=== PATIENT | female | born 1970 | race Caucasian/White ===

== ENCOUNTER 2019-12-04 12:34 | Inpatient (IN) | payer OTHER ==
[2019-12-04 13:09] LABS: #Basophils 0.1 thou/uL (0.0-0.2); #Lymphocytes 2.7 thou/uL (1.20-3.40); #Monocytes 0.5 thou/uL (0.11-0.59); #Neutrophils 6.7 thou/uL (1.40-6.50); %Basophils 1.1 % (0.0-1.0); %Eosinophils 0.2 % (0.0-10.0); %Lymphocytes 27.1 % (21.0-51.0); %Monocytes 5.4 % (0.0-10.0); %Neutrophils 66.2 % (42.0-75.0); Hemoglobin 16.5 g/dL (12.0-16.0); Mean Corpuscular HGB CONC 33.1 g/dL (32.0-36.0); Mean Corpuscular Hemoglobin 30.3 pg (27.0-31.0); Mean Corpuscular Volume 91.6 fL (78.0-98.0); Mean Platelet Volume 7.7 fL (7.4-10.4); Platelet Count 256 thou/uL (130-400); RBC Distribution Width 11.9 % (11.5-14.5); Red Blood Cell (RBC) Count 5.46 mill/uL (4.20-5.40)
--- NOTE | 2019-12-04 13:20 | RAD ---
EXAM: Chest Two Views 12/04/2019 1:17 PM HISTORY: Dyspnea with fevers and chills COMPARISON: None. FINDINGS: Heart: Normal in size and contour. Pulmonary vessels: Normal. Costophrenic angles: Clear. Lungs: No acute airspace consolidation. Pneumothorax: None. Osseous structures:Intact. Additional findings: None. IMPRESSION: No significant acute intrathoracic disease.
[2019-12-04 13:30] LABS: ALT (SGPT) 48 U/L (8-55); AST (SGOT) 24 U/L (5-34); Albumin 4.9 g/dL (3.5-5.0); Alkaline Phosphatase 93 U/L (40-110); Anion Gap 17 mmol/L (10-20); BUN (Urea Nitrogen) 12 mg/dL (9.8-20.1); Bilirubin, Total 0.4 mg/dL (0.2-1.2); Calc. Creatinine Clearance 0 mL/min (70-130); Calcium 10.1 mg/dL (7.8-10.44); Carbon Dioxide 27 mmol/L (22-29); Chloride 104 mmol/L (98-107); Estimated GFR-MDRD 64; Globulin 3.1 g/dL (2.4-3.5); Glucose 128 mg/dL (70-105); Potassium 4.2 mmol/L (3.5-5.1); Sodium 144 mmol/L (136-145)
[2019-12-04] MEDS ORDERED: Iopamidol-370 76% 500 ML 1 ML ONE (14:36)
[2019-12-04] MEDS ORDERED: Albuterol Sulfate 2.5 mg/3 ml Neb ONE (14:56)
[2019-12-04] MEDS ORDERED: Magnesium 2 GM/50 ML BAG (IN WATER) ONE (15:02)
[2019-12-04] MEDS ORDERED: Dexamethasone 10 MG/ML VIAL ONE (15:02)
[2019-12-04] MEDS ORDERED: Lorazepam 2 MG/ML VIAL ONE (15:02)
[2019-12-04 15:28] LABS: Actual Bicarbonate (HCO3a) 19.6 mEq/L (22-28); Analyzer IN Cardio ER; Base Excess (BEa) -1.4 mEq/L (-2.0 to +3.0); CO2 Tension 25.4 mmHg (35.0-45.0); Calcium, Ionized 1.17 mmol/L (1.12-1.30); Carboxyhemoglobin (COHb) 0.4 gm% (0.0-3.0); Hemoglobin (Hb) 16.7 g/dL (12.0-16.0); O2 Tension (PaO2) 73.6 mmHg (80.0-100.0); Potassium - ABG Lab 3.84 mmol/L (3.70-5.30); pH, Arterial 7.51 (7.35-7.45)
[2019-12-04 15:29] LABS: Puncture Site LRA
[2019-12-04 15:48] LABS: CK (CPK) 53 U/L (29-168); Lipase 8 U/L (8-78)
--- NOTE | 2019-12-04 16:20 | PDOC.FPRHP ---
- History of Present Illness Chief Complaint: URI with fever/chills and wheezing History of Present Illness: 49 yo pleasant female presents for evaluation of URI with fevers, cough, and wheezing. Patient was sent from her PCP, Dr. Elizondo for further evaluation. Patient reports that on 11/25/19 symptoms began and she thought she had the flu. She notes she had fevers, chills, hallucinations, vomiting, and diarrhea. 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 She notes that now it has been 8 days of not feeling well and she is just getting run down. She reports pain in her chest with coughing and she continues to cough up thick dark colored sputum. She notes that she has had multiple fevers with the last fever occurring last night to 100.7. She also notes her Tmax during this time as up to 102.3. Again, patient believes this is the flu, but she hasn't had it in so long that she is unaware how much of a toll it takes on a person. 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 No other complaints. ED Course: Duonebs x3 Albuterol Nebulizer Vancomycin Levaquin Decadron Magnesium Sulfate 3L NS bolus Ativan - Allergies/Adverse Reactions Allergies Allergy/AdvReac Type Severity Reaction Status Date / Time No Known Drug Allergies Allergy Verified 12/04/19 16:25 - History PMHx: None PSHx: None FHx: Non-contributory and not assessed Social: Social Alcohol drinker, No tobacco or drug use. 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 Medication reconciliation: HCTZ PRN for lower extremity edema Modafinil PRN for shift work Several OTC herb/supplements Recently during episode: Symbicort BID Rocephin 2 mg Sudaphed Methylprednisolone Robitussin with codeine - Review of Systems General: reports: fever/chills, fatigue. denies: weight/appetite/sleep changes Eyes: denies: eye pain, vision changes ENT: denies: nasal congestion, rhinorrhea Respiratory: reports: cough, congestion, shortness of breath Cardiovascular: denies: chest pain, palpitation, edema Gastrointestinal: reports: nausea, diarrhea. denies: vomiting, abdominal pain Genitourinary: denies: incontinence, dysuria Skin: denies: rashes, lesions Musculoskeletal: denies: pain, tenderness, stiffness, swelling Neurological: denies: numbness, syncope, seizure Psychological: denies: anxiety, depression - Vital signs BP: 182/107 HR: 96 RR: 22 Tmax: 98.3 Pox: 99% on RoomAir Wt: 113 kg - Physical Exam Constitutional: NAD, awake, alert and oriented HEENT: grossly normal vision, grossly normal hearing, normal nasal mucosa Neck: supple, trachea midline Heart: RRR, normal S1/S2, no murmurs/rubs/gallops Lungs: CTAB, no respiratory distress, good air movement, no wheezing -Lungs: Upper Airway sounds audible. No wheezing present over lung herrera. Abdomen: soft, non-tender, bowel sounds present, no masses/distention Musculoskeletal: normal structure, normal tone, ROM grossly normal Neurological: no focal deficit, CN II-XII intact, normal sensation Skin: no rash/lesions, good turgor, capillary refill <2 seconds Heme/Lymphatic: no unusual bruising or bleeding, no purpura Psychiatric: normal mood and affect, good judgment and insight, intact recent and remote memory FMR H&P: Results - Labs Result Diagrams: 12/04/19 12:57 12/04/19 12:57 Lab results: WBC 10.0 thou/uL (4.8-10.8) 12/04/19 12:57 Hgb 16.5 g/dL (12.0-16.0) H 12/04/19 12:57 Hct 50.1 % (36.0-47.0) H 12/04/19 12:57 MCV 91.6 fL (78.0-98.0) 12/04/19 12:57 Plt Count 256 thou/uL (130-400) 12/04/19 12:57 Neutrophils % 66.2 % (42.0-75.0) 12/04/19 12:57 ABG pH 7.51 (7.35-7.45) H 12/04/19 15:20 ABG pCO2 25.4 mmHg (35.0-45.0) L* 12/04/19 15:20 ABG pO2 73.6 mmHg (80.0-100.0) L 12/04/19 15:20 Sodium 144 mmol/L (136-145) 12/04/19 12:57 Potassium 4.2 mmol/L (3.5-5.1) 12/04/19 12:57 Chloride 104 mmol/L (98-107) 12/04/19 12:57 Carbon Dioxide 27 mmol/L (22-29) 12/04/19 12:57 BUN 12 mg/dL (9.8-20.1) 12/04/19 12:57 Creatinine 0.93 mg/dL (0.6-1.1) 12/04/19 12:57 Glucose 128 mg/dL (70-105) H 12/04/19 12:57 Lactic Acid 3.6 mmol/L (0.5-2.2) H 12/04/19 15:19 Calcium 10.1 mg/dL (7.8-10.44) 12/04/19 12:57 Total Bilirubin 0.4 mg/dL (0.2-1.2) 12/04/19 12:57 AST 24 U/L (5-34) 12/04/19 12:57 ALT 48 U/L (8-55) 12/04/19 12:57 Alkaline Phosphatase 93 U/L (40-110) 12/04/19 12:57 Creatine Kinase 53 U/L (29-168) 12/04/19 15:19 B-Natriuretic Peptide 49.1 pg/mL (0-100) 12/04/19 15:19 Serum Total Protein 8.0 g/dL (6.0-8.3) 12/04/19 12:57 Albumin 4.9 g/dL (3.5-5.0) 12/04/19 12:57 Lipase 8 U/L (8-78) 12/04/19 15:19 - EKG Interpretation EK lead EKG shows normal sinus rhythm, Rate (beats per minute): 88, ST, ST and T wave abnormality, consider inferolateral ischemia, T waves, ST and T wave abnormality, consider inferolateral ischemia, cannot rule out anterior infarct, age undetermined. - Radiology Interpretation Chest x-ray Status: image reviewed by me (NAD) FMR H&P: A/P - Problem List (1) Viral bronchitis Current Visit: Yes Status: Acute Code(s): J20.8 - ACUTE BRONCHITIS DUE TO OTHER SPECIFIED ORGANISMS (2) Lactic acid acidosis Current Visit: Yes Status: Acute Code(s): E87.2 - ACIDOSIS (3) Respiratory alkalosis Current Visit: Yes Status: Acute Code(s): E87.3 - ALKALOSIS (4) Elevated BP without diagnosis of hypertension Current Visit: Yes Status: Acute Code(s): R03.0 - ELEVATED BLOOD-PRESSURE READING, W/O DIAGNOSIS OF HTN - Plan Respiratory Alkalosis - Likely secondary to #2 - O2 supplementation and pulmonary hygiene recommended Bronchitis - Will continue steroids - Nebulizers as needed - Will order procalcitonin - Will likely discontinue antibiotics with CXR imaging and overall non toxic appearance Lactic Acidosis - 3.6 on admission - IVF in ED and will recheck in 2 hours as reflex Elevated BP - No home medications per patient - PRN available - Anticipate outpatient monitoring and treatment PCP: Dr. Elizondo CODE STATUS: FULL CODE Disposition: Stable, will admit for medical observation and likely discharge tomorrow. Addendum - Attending - Attending Attestation Date/Time: 12/04/19 2200 I personally evaluated the patient and discussed the management with Dr. Crawford I agree with the History, Examination, Assessment and Plan documented above with any addition or exceptions noted below. 49 yo WF PMH recently suspected influenza that started 8 days ago. Presented to ER after PCP thought she was developing PNA. had received IM rocephin in clinic without improvement. C/O SOB, cough, chest pain with coughing. Denies hemoptysis. Had had fever up to 102.7F. At time of exam stated "the ton of bricks had been lifted off my chest but the baby elephant is still there." States she has similar sx whenever she has a respiratory illness. Mild respiratory distress on exam with diffuse wheezing. Non-toxic appearing and speaks in full sentences. Labs unremarkable except for elevated lactate that trended up on repeat (minimal fluid resuscitation at that point), hypocarbemia, and mild hypoxemia on ABG. Imaging negative. EKG unremarkable. Admit for acute hypoxemic respiratory distress 2/2 presumed post viral reactive airway disease. Continue IV steroids and q3hr duoneb with q1 hr albuterol PRN. Will hold abx for now as no signs of infiltrate on CXR or CT chest and received 1 dose of levaquin in ER. Procal pending. Tele, inpatient, >2 midnights.
--- NOTE | 2019-12-04 17:14 | CT ---
CT OF THE SOFT TISSUES OF THE NECK WITH IV CONTRAST INDICATION: History of fever, dyspnea and congestion COMPARISON: None FINDINGS: Aerodigestive tract: Clear. Parotids/Submandibular/Thyroid glands: Normal. Lymph nodes: No pathologically enlarged lymph nodes. Lung Apices: Clear Bones: No acute osseous abnormality. There is scattered degenerative and osteoarthritic change prese nt. Incidentals: Visualized intracranial contents appear within normal limits. Visualized aspects of the paranasal sinuses appear within normal limits. Mastoid air cells are clear . IMPRESSION: Normal examination.
--- NOTE | 2019-12-04 17:55 | CT ---
Exam: CT angiogram of the chest HISTORY: Tachycardia. Cough. Fever. Dyspnea. COMPARISON: None TECHNIQUE: CT angiogram of the chest is performed in the axial plane. Three-dimensional reformatted i mages are submitted for interpretation FINDINGS: Mediastinum: No mass, lymphadenopathy or hematoma. HEART: Normal size. No significant pericardial fluid. Aorta: Appropriate enhancement. No aneurysm or dissection. Upper solid abdominal viscera: 0.8 cm hypodensity in the right hepatic lobe. Otherwise, visualized so lid organs are unremarkable. Trachea and central bronchi: Patent Pleural spaces: No effusion Lung parenchyma: Minimal dependent atelectatic changes. No masses, nodules. No consolidation. Pneumothorax: None Osseous structures: No lytic or blastic lesions Pulmonary arteries:Markedly suboptimal evaluation of the pulmonary arterial system due to the poor ti divine of contrast bolus. The main pulmonary trunk and central pulmonary arteries are grossly unremarkable. No obvious filling defects though evaluation is limited. Examination is essentially non diagnostic in terms of evaluation for the lobar, segmental, and subsegmental arteries. IMPRESSION: Markedly suboptimal evaluation of the pulmonary arterial system. Grossly no obvious central PE. Transcribed Date/Time: 12/04/2019 6:33 PM
[2019-12-04 18:22] LABS: Bilirubin Negative (Negative); Blood, Urine Negative (Negative); Clarity Clear (Clear); Glucose, Urine (Dipstick) Normal (Negative); Leukocyte Negative Leu/uL (Negative); Nitrite Negative (Negative); Protein, Urine (Dipstick) Negative (Neg-Trace); Urobilinogen Normal mg/dL (Less than 2)
[2019-12-04 18:58] LABS: Lactic Acid 4.7 mmol/L (0.5-2.2)
[2019-12-04] MEDS ORDERED: Albuterol Sulfate 2.5 mg/0.5 ml Neb ONE ×4 (19:27)
[2019-12-04] MEDS ORDERED: Ondansetron PF 4 MG/2 ML Vial IVP PRN (21:29)
[2019-12-04] MEDS ORDERED: Sodium Chloride 0.9% 1,000 ML IV SCH ×2 (21:29→22:00)
[2019-12-04] MEDS ORDERED: Ondansetron ODT 4 MG TAB SL PRN (21:29)
[2019-12-04] MEDS ORDERED: hydrALAZINE 20 MG/ML VIAL SLOW IVP PRN (21:37)
[2019-12-04] MEDS ORDERED: Loperamide HCl 2 MG CAP PO PRN (21:37)
[2019-12-04] MEDS ORDERED: Acetaminophen 325 MG TAB PO PRN (21:37)
[2019-12-04] MEDS ORDERED: Ondansetron ODT 4 MG TAB PO PRN (21:37)
[2019-12-04] MEDS ORDERED: Benzonatate 100 MG CAP PO SCH (21:45)
[2019-12-04] MEDS: clonazePAM 0.5 MG TAB PO PRN (21:46)
[2019-12-04] MEDS: guaiFENesin/Codeine Phosphate 200 mg/20 mg 10 ml UD Cup PO PRN (21:46)
[2019-12-04 21:54] VITALS: BMI 42.8
[2019-12-04] MEDS ORDERED: Albuterol Sulfate 1.25 MG/3 ML NEB NEB PRN (22:38)
[2019-12-04] MEDS ORDERED: Albuterol Sulfate 1.25 MG/3 ML NEB NEB SCH (23:00)
[2019-12-05 00:41] LABS: Lactic Acid 7.3 mmol/L (0.5-2.2)
[2019-12-05] MEDS ORDERED: Sodium Chloride 0.9% 1,000 ML IV SCH (01:06)
--- NOTE | 2019-12-05 01:12 | PDOC.BPN ---
- Brief Progress Note LA trended up to 7.3 Check on patient at bedside Says her SOB is turning a corner and has improved Complains of rib pain from constant coughing, requests 1 time dose of tramadol Mild rales right upper lobe, mild exp stridor upper airway D-dimer neg, trop neg, CTA chest neg for PE but suboptimal, WBC 10.0, procal neg Patient has had 3L, will finish 4th bag, to put her at 30mg/kg fluid resuscitation No signs of volume overload at this point\ s/p vanc, levoquin, steroids, and lots of nebs Satting 98-99 on 3L, same as ED RR 26, speaking in complete sentences clinically stable from the time she was in the ED will re-check LA in 3 hours and if it continues to rise will re-check ABG Repeat CXR in the AM to see if a pneumonia is evident after fluid resuscitation
[2019-12-05] MEDS ORDERED: traMADol HCl 50 MG TAB PO SCH (01:15)
[2019-12-05] MEDS ORDERED: Dexamethasone 4 mg/ml Vial SLOW IVP SCH (03:00)
[2019-12-05 04:43] LABS: #Lymphocytes 0.8 thou/uL (1.20-3.40); #Monocytes 0.3 thou/uL (0.11-0.59); #Neutrophils 7.4 thou/uL (1.40-6.50); %Basophils 0.2 % (0.0-1.0); %Eosinophils 0.3 % (0.0-10.0); %Lymphocytes 9.8 % (21.0-51.0); %Monocytes 3.9 % (0.0-10.0); %Neutrophils 85.9 % (42.0-75.0); Hemoglobin 13.4 g/dL (12.0-16.0); Mean Corpuscular HGB CONC 33.6 g/dL (32.0-36.0); Mean Corpuscular Hemoglobin 30.4 pg (27.0-31.0); Mean Corpuscular Volume 90.4 fL (78.0-98.0); Mean Platelet Volume 7.7 fL (7.4-10.4); Platelet Count 217 thou/uL (130-400); RBC Distribution Width 11.9 % (11.5-14.5); White Blood Cell (WBC) Count 8.6 thou/uL (4.8-10.8)
[2019-12-05 04:56] LABS: Lactic Acid 3.2 mmol/L (0.5-2.2)
[2019-12-05] MEDS ORDERED: Albuterol Sulfate 1.25 MG/3 ML NEB NEB PRN (07:57)
--- NOTE | 2019-12-05 08:12 | RAD ---
XR Chest 1 View History: Shortness of breath. Lactic acidosis Comparison: CT angiogram of the chest prior day Findings: Mild lung hyperinflation. No pneumothorax. No effusion. No consolidation. No acute osseous abnormality. Impression: No acute intrathoracic abnormality.
--- NOTE | 2019-12-05 08:21 | PDOC.FM ---
- Subjective Subjective: Doing well this morning, no acute events overnight. Much improved. Still with cough, improved with cough syrup. No SOB. Tolerating PO well. Able to ambulate in room. Eager for discharge this afternoon. - Objective MAR Reviewed: Yes Vital Signs & Weight: Vital Signs (12 hours) Temp Pulse Resp BP Pulse Ox 12/05/19 07:48 97.6 F 78 20 164/98 H 97 12/05/19 04:00 98.3 F 85 23 H 120/63 99 12/05/19 00:12 91 20 12/04/19 22:00 99 20 129/66 98 12/04/19 21:45 99 12/04/19 21:44 105 H 22 H 95 12/04/19 21:30 98.4 F 108 H 20 167/115 H 99 Weight Weight 120.338 kg I&O: 12/04/19 12/05/19 12/06/19 06:59 06:59 06:59 Intake Total 2117 Output Total 950 Balance 1167 Result Diagrams: 12/05/19 04:25 12/04/19 12:57 Phys Exam - Physical Examination Constitutional: NAD (resting comfortably, good spirits) HEENT: moist MMs Neck: supple Respiratory: no wheezing, no rales, no rhonchi, clear to auscultation bilateral cough with deep inspiration, upper airway congestion Cardiovascular: RRR, no significant murmur, no rub Gastrointestinal: soft, non-tender, no distention, positive bowel sounds Musculoskeletal: no edema, pulses present Neurological: non-focal, moves all 4 limbs Psychiatric: normal affect, A&O x 3 Dx/Plan (1) Viral bronchitis Code(s): J20.8 - ACUTE BRONCHITIS DUE TO OTHER SPECIFIED ORGANISMS Status: Acute (2) Lactic acid acidosis Code(s): E87.2 - ACIDOSIS Status: Acute (3) Respiratory alkalosis Code(s): E87.3 - ALKALOSIS Status: Acute - Plan Plan: 49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 Procal Negative. Lung exam WNL this AM - s/p solumedrol, will d/c today - No wheeze on exam, no underlying lung disease, will space out nebs - s/p vanc and levaquin in ED, low suspicion for bacterial, no further abx warranted. - On 3L overnight but 100%, turned off O2 this AM, had patient moving in bed, talking and satting 97-100% on RA - CTA chest and D-dimer negative for PE however poor image study, very low suspicion for PE #Respiratory Alkalosis - Likely secondary to #2 - O2 supplementation and pulmonary hygiene recommended #Lactic Acidosis - 3.6 -> 4.7 -> 7.3 -> 3.2 - s/p fluid resuscitation, no s/s of sepsis. BCx NGTD #Elevated BP - No home medications per patient - PRN available. Anticipate outpatient monitoring and treatment PCP: Dr. Elizondo IVF: SL Diet: Regular VTE: SCDs CODE STATUS: FULL CODE Disposition: Stable. Improved this AM. Anticipate discharge this PM pending clinical course. Addendum - Attending - Attending Attestation Date/Time: 12/05/19 1042 I personally evaluated the patient and discussed the management with Dr. Dumont. I agree with the History, Examination, Assessment and Plan documented above with any addition or exceptions noted below. Patient here with what sounds like reactive airway disease 2/2 URI. She is feeling much better today, but continues to have severe cough and expiratory wheezes. Continue neb treatments, symptom control, steroids. If doing well today , possible d/c home. However, she may need another day or 2. Of note, patient has not had an O2 requirement as she has not been hypoxic. Supplemental O2 has been weaned successfully.
[2019-12-05] MEDS: Benzonatate 100 MG CAP PO SCH ×3 (08:51→20:41)
[2019-12-05] MEDS: guaiFENesin/Codeine Phosphate 200 mg/20 mg 10 ml UD Cup PO PRN (08:56)
[2019-12-05] MEDS ORDERED: methylPREDNISolone Sod Succ/PF 125 MG/2 ML VIAL IVP SCH (09:00)
[2019-12-05] MEDS ORDERED: predniSONE 20 MG TAB PO SCH (10:45)
[2019-12-05] MEDS ORDERED: Acetaminophen 500 MG TAB PO SCH (12:30)
[2019-12-05] MEDS ORDERED: Cyclobenzaprine 10 MG TAB PO SCH (15:30)
[2019-12-05] MEDS ORDERED: Cyclobenzaprine 10 MG TAB PO PRN (18:09)
[2019-12-05] MEDS: guaiFENesin ER 600 MG TAB PO SCH (20:41)
[2019-12-05] MEDS: clonazePAM 0.5 MG TAB PO PRN (20:42)
--- NOTE | 2019-12-06 06:34 | PDOC.FM ---
- Subjective Subjective: Pt is doing well today. She states she is ready to go. Would like a work note. She denies fever, chills, wheeze, diarrhea, constipation. Endorsed little sore throat with resolving cough. - Objective Vital Signs & Weight: Vital Signs (12 hours) Temp Pulse Resp BP Pulse Ox 12/06/19 04:00 97.6 F 69 20 137/87 96 12/05/19 20:00 98.0 F 101 H 18 136/67 96 12/05/19 19:11 92 16 98 Weight Weight 120.338 kg I&O: 12/04/19 12/05/19 12/06/19 06:59 06:59 06:59 Intake Total 2117 250 Output Total 950 900 Balance 1167 -650 Result Diagrams: 12/05/19 04:25 12/04/19 12:57 Phys Exam - Physical Examination Constitutional: NAD HEENT: PERRLA, moist MMs Respiratory: no wheezing, no rales, clear to auscultation bilateral Cardiovascular: RRR, no significant murmur Gastrointestinal: soft, non-tender, no distention Musculoskeletal: no edema, pulses present Psychiatric: normal affect, A&O x 3 Dx/Plan (1) Elevated BP without diagnosis of hypertension Code(s): R03.0 - ELEVATED BLOOD-PRESSURE READING, W/O DIAGNOSIS OF HTN Status : Acute (2) Lactic acid acidosis Code(s): E87.2 - ACIDOSIS Status: Acute (3) Respiratory alkalosis Code(s): E87.3 - ALKALOSIS Status: Acute (4) Viral bronchitis Code(s): J20.8 - ACUTE BRONCHITIS DUE TO OTHER SPECIFIED ORGANISMS Status: Acute - Plan Plan: 49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 Procal Negative. Lung exam WNL this AM - s/p solumedrol, d/c yesterday - No wheeze on exam, no underlying lung disease, will space out nebs - s/p vanc and levaquin in ED, low suspicion for bacterial, no further abx warranted. - O2 d/c - CTA chest and D-dimer negative for PE however poor image study, very low suspicion for PE #Sore Throat - throat lozenges #Respiratory Alkalosis - Likely secondary to #2 - O2 supplementation and pulmonary hygiene recommended #Lactic Acidosis - 3.6 -> 4.7 -> 7.3 -> 3.2 - s/p fluid resuscitation, no s/s of sepsis. BCx likely contaminant. Otherwise pt is doing well w/o signs of sepsis. #Elevated BP - No home medications per patient - PRN available. Anticipate outpatient monitoring and treatment PCP: Dr. Elizondo IVF: SL Diet: Regular VTE: SCDs CODE STATUS: FULL CODE Disposition: Stable. Improved this AM. Anticipate discharge this PM pending clinical course. Addendum - Attending - Attending Attestation Date/Time: 12/06/19 1350 I personally evaluated the patient at 0808 am and discussed the management with Dr. Freeman I agree with the History, Examination, Assessment and Plan documented above with any addition or exceptions noted below. Stable for d/c home as lungs clear and patient near baseline.
[2019-12-06] MEDS: Benzonatate 100 MG CAP PO SCH (08:00)
[2019-12-06] MEDS: guaiFENesin ER 600 MG TAB PO SCH (08:00)
[2019-12-06] MEDS ORDERED: predniSONE 20 MG TAB PO SCH (08:00)
[2019-12-06 08:07] VITALS: BP 137/88; TEMP 98.3
--- NOTE | 2019-12-06 10:16 | PDOC.EVN ---
Event Note - Event Note Event Note: To Whom It May Concern, Luma Mercedes has been under the care of [facility]. She is allowed to return to work on 12/09/19 without restrictions. If you have questions or concerns you call our office, . Thanks, Dr. Freeman
--- NOTE | 2019-12-08 05:36 | PQF ---
[employer] JAX Prieto GABRIEL MD [id number] [facility]-258 [id number] CLINICAL DOCUMENTATION CLARIFICATION FORM: POST DISCHARGE Addendum to original discharge summary date: ____ Late entry note date: __ DATE: 12/08/2019 ATTN:VIANNEY FUNK MD Please exercise your independent, professional judgment in responding to the clarification form. Clinical indicators are provided on the bottom of this form for your review Please check appropriate box(s): [ ] Acute Respiratory Failure: [ ] with Hypoxia[ ] with Hypercapnia [ ] Acute On Chronic Respiratory Failure: [ ] with Hypoxia [ ] with Hypercapnia [ ] Acute Respiratory Failure due to: (etiology) [ ] ARDS (Acute Respiratory Distress Syndrome) [ ] Chronic Respiratory Failure only [ ] with Hypoxia [ ] with Hypercapnia [ ] Hypoxia [ ] Other diagnosis [ ] Unable to determine In addition, please specify: Present on Admission (POA): [ ] Yes [ ] No [ ] Unable to determine For continuity of documentation, please document condition throughout progress notes and discharge summary. Thank You. CLINICAL INDICATORS - SIGNS / SYMPTOMS / LABS Respiratory Alkalosis - Documented in H&P on 12/04 myke Linda Mild respiratory distress with wheezing - Documented in H&P on 12/04 myke Linda hypocarbemia, Mild hypoxemia on ABG - Documented in H&P on 12/04 myke Linda ABG pH 7.51 on 12/04 - Documented in Laboratory ABG pCO2 25.4 on 12/04 - Documented in Laboratory ABG pO2 73.6 - Documented in Laboratory RISK FACTORS Viral Bronchitis - Documented in H&P on 12/04 myke Linda acute hypoxemic respiratory distress 2/2 presumed post viral reactive airway disease - Documented in H&P on 12/04 myke Linda TREATMENTS: O2 delivery - Nasal Cannula O2 supplementation and pulmonary hygiene recommended Will continue steroids and nebulizers as needed [employer] (This form is maintained as a part of the permanent medical record) 2014 [employer]. All Rights Reserved [email or web address] [phone] Reassign to resident, please. MTDD
== END 2019-12-06 12:17 | disposition home or self-care (01) | DRG 202 ==
LOC: ERS 12:34 → 2NO 21:32
PROVIDERS: ADMIT Family Medicine; ATTEND Family Medicine
DX: J20.8 Acute bronchitis due to other specified organisms (principal); E87.2 Acidosis; E87.3 Alkalosis; Z79.899 Other long term (current) drug therapy
CPT/HCPCS: 36415; 70491; 71045; 71046; 71275; 80053; 81003; 82550; 82805; 83605; 83690; 83880; 84145; 84484; 85025; 85379; 87040; 87149; 87804; 93005; 94640; J1100; J1956; J2060; J3370; J3475; J7512; J7611; J7620; Q9967

== ENCOUNTER 2020-04-13 03:24 | Emergency (ER) | payer OTHER ==
[2020-04-13 18:30] LABS: SARS-CoV-2 MS2 Positive; SARS-CoV-2 N Gene Positive; SARS-CoV-2 S Gene Positive; SARS-CoV-2 orf1ab Positive
== END 2020-04-13 04:18 | disposition home or self-care (01) ==
LOC: ERS 03:24
DX: U07.1 COVID-19 (principal); R50.9 Fever, unspecified; J45.909 Unspecified asthma, uncomplicated; Z79.899 Other long term (current) drug therapy
CPT/HCPCS: 87635; 99283; U0003

== ENCOUNTER 2020-05-11 13:04 | Emergency (ER) | payer OTHER ==
[2020-05-13 14:40] LABS: SARS-CoV-2 MS2 Positive; SARS-CoV-2 N Gene Positive; SARS-CoV-2 S Gene Negative; SARS-CoV-2 orf1ab Negative
== END 2020-05-11 13:30 | disposition home or self-care (01) ==
LOC: ERS 13:04
DX: U07.1 COVID-19 (principal); J45.909 Unspecified asthma, uncomplicated; Z79.899 Other long term (current) drug therapy
CPT/HCPCS: 87635; 99284; U0003